=== PATIENT | female | born 1950 | race Caucasian/White ===

== ENCOUNTER 2016-11-05 10:02 | Outpatient (CLI) | payer MEDICARE ==
--- NOTE | 2016-11-06 15:43 | Mammography Report ---
DIGITAL SCREENING MAMMOGRAM: 11/05/2016 CLINICAL INDICATION: A 66-year-old with family history of breast cancer, history of implants, for scr eening. TECHNIQUE: Routine CC and MLO projections were obtained of the breasts. Implant-displaced views. FINDINGS: The breasts demonstrate scattered fibroglandular densities bilaterally. Coarse and punctat e, typically benign calcifications are present. No suspicious masses, clustered microcalcifications, or regions of architectural distortion are identified. Bilateral subglandular silicone implants are n oted. IMPRESSION: BENIGN FINDINGS. RECOMMENDATION: ROUTINE ANNUAL SCREENING UNLESS OTHERWISE CLINICALLY INDICATED. BIRADS CATEGORY 2-BENIGN FINDINGS. STANDARD QUALIFYING STATEMENTS 1. This examination was reviewed with the aid of Computer-Aided Detection (CAD). 2. A negative or benign imaging report should not delay biopsy if clinically suspicious findings are present. Consider surgical consultation if warranted. More than 5% of cancers are not identified by i maging. 3. Dense breasts may obscure an underlying neoplasm. JOB #: [id number] EXT JOB #:[id number]
== END 2016-11-05 10:03 | disposition home or self-care (01) ==
LOC: DI 10:02
PROVIDERS: ATTEND Family Medicine
DX: Z12.31 Encounter for screening mammogram for malignant neoplasm of breast (principal); Z80.3 Family history of malignant neoplasm of breast; Z98.82 Breast implant status
CPT/HCPCS: 77067

== ENCOUNTER 2016-12-14 06:46 | Outpatient (CLI) | payer MEDICARE ==
--- NOTE | 2016-12-14 07:26 | XRAY Report ---
EXAM: RIGHT SHOULDER RADIOGRAPHY EXAM DATE: 12/14/2016 06:59 AM. CLINICAL HISTORY: RIGHT SHOULDER PAIN. COMPARISON: None. TECHNIQUE: 3 views. FINDINGS: Bones: No fracture. 5 mm ovoid sclerotic lesion with narrow zone of transition in the posterior right second rib is of uncertain clinical significance. No other focal osseous lesions are demonstrated. T here is irregular tapering of the distal clavicle and the acromioclavicular articulation is widened t o approximately 2.6 cm. Joints: No dislocation. There is superior subluxation of the humeral head relative to the acromion. Soft tissues: The visualized hemithorax is clear. Aortic atherosclerosis. IMPRESSION: 1. Findings suggestive of distal clavicle osteolysis versus postsurgical change. 2. Probable chronic rotator cuff tear. No acute fracture or dislocation. [facility] Referring Provider Line: [phone] SITE ID: [id number]
== END 2016-12-14 06:47 | disposition home or self-care (01) ==
LOC: DI 06:46
PROVIDERS: ATTEND Family Medicine
DX: M25.511 Pain in right shoulder (principal); G89.29 Other chronic pain

== ENCOUNTER 2016-12-19 08:33 | Outpatient (CLI) | payer MEDICARE ==
[2016-12-19 08:54] LABS: CREATININE 0.8 mg/dL (0.4-1.0)
[2016-12-19] MEDS ORDERED: IOPAMIDOL-300 100 ML VIAL IVP ONE (10:07)
--- NOTE | 2016-12-21 09:23 | CT Report ---
EXAM: CT THORACIC SPINE WITH CONTRAST EXAM DATE: 12/19/2016 10:13 a.m. CLINICAL HISTORY: Sclerotic lesion in the right second rib. Right shoulder pain. COMPARISONS: Right shoulder radiographs 12/14/2016. TECHNIQUE: Thin-section axial images were acquired of the thoracic spine from C7 to L1 after administ ration of intravenous contrast. IV contrast: 100 mL Isovue-300. Post-processing: Coronal and sagittal reformats. Other: None. In accordance with CT protocol optimization, one or more of the following dose reduction techniques w ere utilized for this exam: automated exposure control, adjustment of mA and/or KV based on patient s ize, or use of iterative reconstructive technique. FINDINGS: Alignment: Normal alignment. No spondylolisthesis. Bones: 6 mm well-defined sclerotic lesion in the posterior right second rib corresponding to the lesi on seen on radiograph. No additional discrete bone lesions are identified within the [id number]. N o fractures. No destructive bone lesions. T8 vertebral body hemangioma is noted. Disk Levels/Facets: Some prominent degenerative disk changes in the lower cervical spine with disk he ight loss, osteophytes and endplate sclerosis most pronounced at C5-C6. C7-T1: Moderate bilateral degenerative facet arthropathy. Uncinate hypertrophy. Mild left greater lindsay n right foraminal stenosis. T1-T2: Moderate right and mild left facet arthropathy. T2-T3: Minimal grade 1 spondylolisthesis. Moderate facet arthropathy. T3-T4: Mild facet arthropathy. T4-T5: Mild facet arthropathy. T5-T6: Unremarkable. T6-T7: Unremarkable. T7-T8: Unremarkable. T8-T9: Unremarkable. T9-T10: Unremarkable. T10-T11: Unremarkable. T11-T12: Some disk height loss, osteophyte formation and endplate sclerosis anteriorly. T12-L1: Small right paracentral protrusion with some peripheral calcification. Spinal Canal: No abnormally enhancing areas by CT. Musculature: Normal. No fatty atrophy. Other: The visualized portions of the lungs appear well-aerated. Some small areas of pleural thickeni ng at the lower posterior right hemithorax. No pleural effusion. Visualized portions of the mediastin um and upper retroperitoneum are unremarkable. IMPRESSION: 1. Single 6 mm well-defined sclerotic lesion in the right second rib. No additional lesions within th e [id number]. Bone island may be most likely given the lack of additional lesions. Correlate with any history of primary neoplasm. 2. Mild thoracic degenerative disk and facet arthropathy. [facility] Referring Provider Line: [phone] SITE ID: [id number]
== END 2016-12-19 08:34 | disposition home or self-care (01) ==
LOC: LAB 08:33
PROVIDERS: ATTEND Family Medicine
DX: R93.7 Abnormal findings on diagnostic imaging of other parts of musculoskeletal system (principal)
CPT/HCPCS: 36415; 72129; 82565; Q9967

== ENCOUNTER 2018-03-07 10:02 | Emergency (ER) | payer MEDICARE ==
[2018-03-07 10:30] VITALS: BP 118/53
[2018-03-07 10:48] LABS: BILIRUBIN,URINE NEGATIVE (NEGATIVE); GLUCOSE, URINE (UA) NEGATIVE (NEGATIVE); KETONES,URINE (UA) NEGATIVE (NEGATIVE); LEUKOCYTE ESTERASE, URINE NEGATIVE (NEGATIVE); NITRITE,URINE NEGATIVE (NEGATIVE); OCCULT BLOOD,URINE NEGATIVE (NEGATIVE); PROTEIN,URINE NEGATIVE (NEGATIVE); UROBILINOGEN,URINE 0.2 (NORMAL) E.U./dL (NORMAL)
[2018-03-07 10:50] LABS: CLARITY,URINE CLEAR (CLEAR)
[2018-03-07] MEDS ORDERED: LIDOCAINE PATCH 5% TOP STA (12:03)
[2018-03-07] MEDS ORDERED: DEXAMETHASONE 10 MG/ML VIAL PO STA (12:03)
[2018-03-07] MEDS ORDERED: CYCLOBENZAPRINE 10 MG TABLET PO STA (12:04)
--- NOTE | 2018-03-07 12:11 | ED Physician Documentation ---
History of Present Illness - Stated complaint Stated Complaint: BACK PX - Chief complaint Chief Complaint: Back Pain - Additonal information Additional information: hx from pt 67 female prior laminectomy in [place] somewhat insidious onset low back pain radiating to lateral thighs but not past the knees no fever no abd pain no saddle anesthesia no urinary incont no numbness or weakness her PMD not available she spoke to her insurance company thinks may need MRI Review of Systems Constitutional: denies: Fever Cardiac: denies: Chest pain / pressure Respiratory: denies: Dyspnea GI: denies: Abdominal Pain : denies: Incontinent Musculoskeletal: reports: Back pain Neurologic: denies: Focal weakness, Numbness Endocrine: denies: Easy bruising / bleeding Immunocompromised: denies: Immunocompromised PD PAST MEDICAL HISTORY - Present Medications Home Medications: Ambulatory Orders Medication Instructions Recorded Confirmed Cyclobenzaprine [Flexeril] 10 mg PO TID PRN #20 tablet 03/07/18 Lidocaine Patch 5% [Lidoderm Patch] 1 patch TOP DAILY PRN #10 patch 03/07/18 predniSONE [Deltasone] 40 mg PO DAILY #5 tablet 03/07/18 - Allergies Allergies/Adverse Reactions: Allergies Allergy/AdvReac Type Severity Reaction Status Date / Time acetaminophen [From Vicodin] Allergy Emesis Verified 03/07/18 10:30 hydrocodone [From Vicodin] Allergy Emesis Verified 03/07/18 10:30 oxycodone Allergy Emesis Verified 03/07/18 10:30 tetanus toxoid, adsorbed Allergy Unknown Verified 03/07/18 10:30 PD ED PE NORMAL - Vitals Vital signs reviewed: Yes - Neck Neck: Supple, no meningeal sign - Cardiac Cardiac: RRR - Respiratory Respiratory: No respiratory distress, Clear bilaterally - Abdomen Abdomen: Soft, Non tender, Other (no pulsatile mass) - Back Back: No spinal TTP, Other (diffuse soft tissue low back TTP s redness swellign warmth, very limited 2/2 pain) - Derm Derm: Normal color - Neuro Neuro: Other (denies saddle anesthesia, neg SLR nl sensation, hip flexion knee ext slightly limited by pain but symm and intact, foot dorsi plant and great toe ext intact, no clonus, inc pain with SLR) Results - Vitals Vitals: Vital Signs - 24 hr 03/07/18 10:23 Temperature 36.3 C L Heart Rate 100 Respiratory 18 Rate Blood Pressure 118/53 L O2 Saturation 100 Oxygen O2 Source Room air - Labs Labs: Laboratory Tests 03/07/18 10:27 Urine Color YELLOW Urine Clarity CLEAR Urine pH 6.0 Ur Specific [place] 1.010 Urine Protein NEGATIVE Urine Glucose (UA) NEGATIVE Urine Ketones NEGATIVE Urine Occult Blood NEGATIVE Urine Nitrite NEGATIVE Urine Bilirubin NEGATIVE Urine Urobilinogen 0.2 (NORMAL) Ur Leukocyte Esterase NEGATIVE Ur Microscopic Review NOT INDICATED Urine Culture Comments NOT INDICATED PD MEDICAL DECISION MAKING - ED course ED course: d/w pt this could be a new HNP and she may need a MRI but not needing emergent MRI from the ER at this time advised will manage her pain and sx with lidocaine mm relaxant steroids for radicular pain and needs to fup PMD and if sx persist despite conservative tx then would proceed to MRI she seems frustrated with this plan but understands my explanation Departure - Departure Disposition: 01 Home, Self Care Clinical Impression: Back pain Qualifiers: Back pain location: low back pain Chronicity: acute Back pain laterality: bilateral Sciatica presence: with sciatica Sciatica laterality: bilateral sciatica Qualified Code(s): M54.42 - Lumbago with sciatica, left side; M54.41 - Lumbago with sciatica, right side Sciatica Qualifiers: Laterality: bilateral Qualified Code(s): M54.31 - Sciatica, right side; M54.32 - Sciatica, left side Instructions: ED Sciatica, ED Neck Back Pain General Follow-Up: Yunier Anaya MD [Primary Care Provider] - Prescriptions: Cyclobenzaprine [Flexeril] 10 mg PO TID PRN #20 tablet PRN Reason: Spasms Lidocaine Patch 5% [Lidoderm Patch] 1 patch TOP DAILY PRN #10 patch PRN Reason: pain predniSONE [Deltasone] 40 mg PO DAILY #5 tablet Comments: Your history and exam do suggest you may have another herniated disk. But do not suggest a need for emergent surgery Therefore you do not need an emergent MRI for the ER today This does not mean nothing is wrong or that you won't need a MRI if your symptoms persist But for now I think it is safe for you to go home to follow up with your PMD as scheduled and to discuss getting an elective MRI as an outpatient of the symptoms persist I have prescribed medications to help ease your symptoms. Return if worse (fever, numbness in the groin area, leaking urine, worsening weakness)
== END 2018-03-07 12:52 | disposition home or self-care (01) ==
LOC: ED 10:02
DX: M54.42 Lumbago with sciatica, left side (principal); M54.41 Lumbago with sciatica, right side
CPT/HCPCS: 81003; 99283; A9270; 81001; 87086

== ENCOUNTER 2018-03-12 13:43 | Outpatient (CLI) | payer MEDICARE ==
--- NOTE | 2018-03-14 13:18 | Ultrasound Report ---
Reason: LOCALIZED SWELLING,MASS AND LUMP Procedure Date: 03/12/2018 Accession Number: [id number] / [id number] Procedure: US - Head or Neck Soft Tissue CPT Code: FULL RESULT: EXAM: NECK ULTRASOUND EXAM DATE: 03/12/2018 01:51 PM. CLINICAL HISTORY: LOCALIZED SWELLING,MASS AND LUMP BEHIND THE LEFT EAR. COMPARISON: None. TECHNIQUE: Real-time sonographic imaging was performed by the route supervisor utilizing color-flow. Multiple insurance representative static images were saved for review. FINDINGS: The soft tissue area behind the left ear corresponding to the physical exam finding of concern was interrogated with grayscale and limited color Doppler ultrasound. A hypoechoic wider than tall ovoid structure with heterogeneous echotexture and no increased vascularity by color Doppler measuring 1 cm x 1.1 cm 0.4 cm is identified. As no fatty hilum/hilar vasculature is seen this is not definitely characterize the lymph nodes of the overall appearance and location is compatible. IMPRESSION: Ovoid mass, possible a lymph node as described. Definite architectural features of a lymph node are not demonstrated. [facility]
== END 2018-03-12 13:44 | disposition home or self-care (01) ==
LOC: DI 13:43
PROVIDERS: ATTEND Nurse Practitioner Family
DX: R22.1 Localized swelling, mass and lump, neck (principal)
CPT/HCPCS: 76536

== ENCOUNTER 2018-03-26 08:42 | Outpatient (CLI) | payer MEDICARE ==
[2018-03-26] MEDS ORDERED: IOVERSOL 320 100 ML VIAL IVP ONE ×3 (09:06→09:57)
[2018-03-26 09:14] LABS: CALCIUM 9.1 mg/dL (8.5-10.3); CREATININE 0.8 mg/dL (0.4-1.0)
--- NOTE | 2018-03-27 14:14 | CT Report ---
Reason: LOCALIZED SWELLING,MASS AND LUMP,HEAD Procedure Date: 03/26/2018 Accession Number: [id number] / [id number] Procedure: CT - Neck Soft Tissue W/ CPT Code: FULL RESULT: EXAM: CT SOFT TISSUE NECK WITH CONTRAST. EXAM DATE: 03/26/2018 09:53 AM. HISTORY: 67-year-old presenting with a mass behind the left ear. Evaluate for neck pathology. COMPARISONS: None. TECHNIQUE: Routine soft tissue neck CT protocol. Reconstructions: Coronal and sagittal. IV contrast: OPTIRAY 320 8 mL. In accordance with CT protocol optimization, one or more of the following dose reduction techniques were utilized for this exam: automated exposure control, adjustment of mA and/or KV based on patient size, or use of iterative reconstructive technique. FINDINGS: Dental amalgam streak artifact technically limits evaluation of the oral cavity, oropharynx, and surrounding soft tissues. Visualized Intracranial Contents: Unremarkable. Orbits: Symmetric and unremarkable. Sinuses: Visualized paranasal sinuses and mastoid air cells are clear. Oral cavity: The visualized oral cavity is unremarkable. The floor of the mouth is symmetric. Pharynx : Pharyngeal mucosa is unremarkable. The infratemporal fossa, parapharyngeal spaces, and retropharyngeal space are unremarkable. The base of the tongue is symmetric and unremarkable. The airway is patent. Larynx: Larynx and supraglottic airway are patent without mass lesion. Vocal cords are symmetric. The visualized trachea is unremarkable. Parotid and Submandibular Glands: Symmetric and unremarkable. Lymph Nodes: No enlarged lymph nodes are identified in the cervical, supraclavicular, and visualized superior mediastinal regions. Soft tissues: There are small subcentimeter cervical lymph nodes seen in the left periauricular region measuring up to 4 mm in short axis dimension (series 3, image 45). No other definite mass, inflammatory process, fluid collection, or abnormal postcontrast enhancement seen within the left auricular or periauricular region. Soft tissues are unremarkable. No mass lesion or abnormal enhancement. Vascular Structures: Unremarkable. Thyroid Gland: Normal. Lung: The visualized lung apices are clear. Bones: No evidence of acute fracture or malalignment. There are mild degenerative changes. Other: None. IMPRESSION: 1. Dental amalgam streak artifact technically limited evaluation of the oral cavity, oropharynx, and surrounding soft tissues. 2. There are small subcentimeter cervical lymph nodes seen in the left periauricular region measuring up to 4 mm in short axis dimension (series 3, image 45). These do not meet CT size criteria for pathology. These may represent reactive lymph nodes. 3. No other definite mass, inflammatory process, fluid collection, or abnormal postcontrast enhancement seen within the left auricular or periauricular region. 4. No mass, inflammatory process, fluid collection, or abnormal postcontrast enhancement seen within the neck. 5. No cervical lymphadenopathy. [facility]
== END 2018-03-26 08:43 | disposition home or self-care (01) ==
LOC: LAB 08:42
PROVIDERS: ATTEND Nurse Practitioner Family
DX: R22.0 Localized swelling, mass and lump, head (principal)
CPT/HCPCS: 36415; 70491; 80048; Q9967

== ENCOUNTER 2019-01-10 08:24 | Outpatient (CLI) | payer MEDICARE | END 2019-01-10 08:25 | disposition home or self-care (01) | LOC: RT 08:24 | PROVIDERS: ATTEND Nurse Practitioner Family | DX: Z01.810 Encounter for preprocedural cardiovascular examination (principal) | CPT/HCPCS: 93005 ==

== ENCOUNTER 2019-03-18 08:30 | Outpatient (CLI) | payer MEDICARE ==
[2019-03-18] MEDS ORDERED: IOVERSOL 320 100 ML VIAL IVP ONE ×2 (08:35→09:03)
--- NOTE | 2019-03-19 09:26 | CT Report ---
Reason: LOCALIZED ENGLOARGED LYMPHNODES Procedure Date: 03/18/2019 Accession Number: [id number] / [id number] Procedure: CT - SOFT TISSUE NECK W CPT Code: Final Report FULL RESULT: EXAM: CT SOFT TISSUE NECK WITH CONTRAST. EXAM DATE: 03/18/2019 09:02 AM. HISTORY: Localized enlarged lymph nodes. Lump behind left ear. COMPARISONS: NECK SOFT TISSUE W/ 03/26/2018 9:44 AM HEAD OR NECK SOFT TISSUE 03/12/2018 1:51 PM. TECHNIQUE: Routine soft tissue neck CT protocol with contrast. Reconstructions: Coronal and sagittal. IV contrast: OPTI 320 80ML. In accordance with CT protocol optimization, one or more of the following dose reduction techniques were utilized for this exam: automated exposure control, adjustment of mA and/or KV based on patient size, or use of iterative reconstructive technique. FINDINGS: Visualized Intracranial Contents: Unremarkable. Orbits: Symmetric and unremarkable. Sinuses: Visualized paranasal sinuses and mastoid air cells are clear. Oral cavity: The visualized oral cavity is unremarkable. The floor of the mouth is symmetric. Pharynx: Pharyngeal mucosa is unremarkable. The export manager spaces and pterygopalatine fossa are unremarkable. The infratemporal fossa, parapharyngeal spaces, and retropharyngeal space are unremarkable. The base of the tongue is symmetric and unremarkable. The airway is patent. Larynx: Larynx and supraglottic airway are patent without mass lesion. Vocal cords are symmetric. The visualized trachea is unremarkable. Parotid and Submandibular Glands: Symmetric and unremarkable. Lymph Nodes: No enlarged lymph nodes are identified in the cervical, supraclavicular, and visualized superior mediastinal regions. Soft tissues: Soft tissues are unremarkable. No mass lesion or abnormal enhancement. A metallic BB is placed on the skin posterior to the left ear, at the site of symptoms. Deep to this, no fascial plane abnormality is seen. No solid or cystic mass is appreciated. No abnormal inflammation. Vascular Structures: Patent and unremarkable. The right internal jugular vein is dominant. Thyroid Gland: Normal. Lung: The visualized lung apices are clear. Bones: No lytic or blastic bony lesions. No acute fracture. Mild cervical spondylosis is seen. C3-C4: Left-sided degenerative facet change. Mild degenerative disk change. Minimal spondylolisthesis. C4-C5, C5-C6, C6-C7: Degenerative disk and uncovertebral change. Scattered foraminal stenosis. C7-T1: Mild degenerative facet change greater on the left. Minimal spondylolisthesis. Other: None. IMPRESSION: 1. Negative CT scan of the neck. No mass or adenopathy. 2. No abnormality is seen deep to the skin marker placed posterior to the left ear. 3. Mild spondylosis throughout the mid and lower cervical spine. [facility]
== END 2019-03-18 08:31 | disposition home or self-care (01) ==
LOC: DI 08:30
PROVIDERS: ATTEND Nurse Practitioner Family
DX: R59.0 Localized enlarged lymph nodes (principal); M47.812 Spondylosis without myelopathy or radiculopathy, cervical region
CPT/HCPCS: 70491; Q9967

== ENCOUNTER 2019-04-17 07:56 | Day surgery (SDC) | payer MEDICARE ==
[~2019-04-17 07:56] MED LIST: CEFAZOLIN SODIUM IN 0.9 % NACL 2 GM/100 ML BAG IV ONE
[2019-04-17] MEDS ORDERED: LACTATED RINGERS 1,000 ML IV ONE (08:07)
--- NOTE | 2019-04-17 08:41 | ANESTHESIA ---
Pre-Anesthesia VS, & Labs - Diagnosis right flank mass, left post auricular mass - Procedure Excision of right flank mass and left post auricular mass Vital Signs: Temp Pulse Resp BP Pulse Ox 36.1 C L 74 16 173/85 H 98 04/17/19 08:07 04/17/19 08:07 04/17/19 08:07 04/17/19 08:07 04/17/19 08:07 Height 4 ft 11 in Weight (kg) 80.3 kg Body Mass Index 33.2 - NPO >8 hours - Is Patient ?: No Home Medications and Allergies Home Medications: Ambulatory Orders Atorvastatin Calcium 20 mg PO QPM 03/30/19 Gabapentin 300 mg PO BID 03/30/19 Levothyroxine Sodium 50 mcg PO DAILY 03/30/19 Liothyronine [Cytomel] 5 mcg PO QDAC 03/30/19 Atorvastatin Calcium 20 mg PO QPM 03/30/19 Gabapentin 300 mg PO BID 03/30/19 Levothyroxine Sodium 50 mcg PO DAILY 03/30/19 Liothyronine [Cytomel] 5 mcg PO QDAC 03/30/19 Allergies/Adverse Reactions: Allergies Allergy/AdvReac Type Severity Reaction Status Date / Time hydrocodone [From Vicodin] Allergy Emesis Verified 03/07/18 10:30 oxycodone Allergy Emesis Verified 03/07/18 10:30 tetanus toxoid, adsorbed Allergy Dizziness Verified 03/30/19 15:03 Anes History & Medical History - Anesthetic History Anesthesia Complications: reports: No previous complications - Medical History Cardiovascular: reports: High cholesterol Pulmonary: reports: None Gastrointestinal: reports: None Urinary: reports: None Neuro: reports: Peripheral neuropathy (right foot) Musculoskeletal: reports: Chronic back pain Endocrine/Autoimmune: reports: HyPOthyroidism Blood Disorders: reports: None Skin: reports: None Smoking Status: Never smoker Psychosocial: reports: Alcohol (Glass of wine 3-4 times per week) - Surgical History Orthopedic: Rotator cuff repair, Arthroscopic surgery, Spine surgery, Other Results - EKG Results EKG Comparison: Reviewed EKG, Normal EKG Exam General: Alert, Oriented x3, Cooperative, No acute distress Dental: WNL Mouth Openin Fingerbreadth Neck Mobility: Normal Mallampati classification: II Thyromental Distance: greater than 6 cm Respiratory: Lungs clear, Normal breath sounds, No respiratory distress, No accessory muscle use Cardiovascular: Regular rate, Normal S1, Normal S2, No murmurs Mental/Cognitive Status: Alert/Oriented X3, Normal for patient Plan Anesthesia Type: MAC Consent for Procedure(s) Verified and Reviewed: Yes Code Status: Attempt Resuscitation ASA classification: 2-Mild systemic disease Is this case an emergency?: No
[2019-04-17] MEDS ORDERED: BUPIVACAINE 0.5% PF 30 ML VIAL ONE (09:13)
[2019-04-17] MEDS ORDERED: LIDOCAINE 1%-EPI 1:100000 20 ML MDV ONE (09:14)
[2019-04-17] MEDS ORDERED: fentaNYL 100 MCG/2 ML VIAL IVP ONE (09:30)
[2019-04-17] MEDS ORDERED: LIDOCAINE-MPF 2% 5 ML VIAL IM ONE (09:30)
[2019-04-17] MEDS ORDERED: MIDAZOLAM 2 MG/2 ML VIAL IVP ONE (09:30)
[2019-04-17] MEDS ORDERED: PROPOFOL 200 MG/20 ML VIAL IVP ONE (09:30)
[2019-04-17] MEDS ORDERED: LIDOCAINE 1%-EPI 1:100000 20 ML MDV SUBQ ONE ×2 (10:10)
[2019-04-17] MEDS ORDERED: BUPIVACAINE 0.5% PF 30 ML VIAL INFIL ONE ×2 (10:11)
--- NOTE | 2019-04-17 10:28 | OPERATIVE REPORT ---
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 Procedure Performed: Excision of right flank lipoma and posterior auricular lipomatous mass Post Op Diagnosis: Right flank lipoma and posterior auricular lipomatous mass - Procedure Note Primary Surgeon: Mike Anesthesia Provider: FERMIN Norwood Anesthesia Technique: Local, MAC Pathology: 8 cm flank mass to pathology in formalin 2 cm posterior auricular mass to pathology in formalin Estimated Blood Loss (mL): 5 Findings: Well circumscribed right flank mass Partially well circumscribed left posterior auricular mass Complications: None apparent - Other Other Information/Narrative: After obtaining informed consent, the patient is brought to the operating room and placed in the supine position on the operating table. Following successful induction of sedation with monitored anesthesia care, the patient is rolled to the left lateral decubitus position and the right flank prepped and draped in the standard surgical fashion. A timeout was held per scope protocol. All elements of surgical safety checklist were followed before, during, and after the procedure. We began the procedure by infiltrating mixture of local anesthetics over the palpable mass in the right flank. An incision was created here and carried through the skin and subcutaneous tissue to reveal the fatty mass below. The mass was carefully dissected free from surrounding structures. It was found to have a single neurovascular pedicle at the right lateral aspect of the mass. This was divided gently with cautery. The wound was then checked for hemostasis and closed in 2 layers with Vicryl Monocryl suture. Dermabond was applied to the skin. The patient was then rolled, with her assistance, to her right side and her head turned to the right revealing the left posterior auricular region. This area was now prepped and draped in the standard surgical fashion. Additional local anesthetic was applied to the palpable mass posterior to the left ear. An incision was created at the anterior extent of the mass and the fatty substance was revealed. This was carefully dissected free from other structures and delivered into the field. Total size of this mass was approximately 2 cm. The wound was then checked for hemostasis and closed in 2 layers with Vicryl and Monocryl suture. All sponge, needle, and instrument counts were correct at the conclusion of the case. The patient was allowed to wake from anesthesia without difficulty and taken to the postanesthesia care unit in good condition.
[2019-04-17] MEDS ORDERED: oxyCODONE 5 MG TABLET PO PRN (10:31)
[2019-04-17 10:50] VITALS: BP 138/69
== END 2019-04-17 07:57 | disposition home or self-care (01) ==
LOC: SDS 07:56
PROVIDERS: ATTEND Surgery
PROC: 0JB70ZZ Excision of Back Subcutaneous Tissue and Fascia, Open Approach (ICD-10-PCS; 2019-04-17)
PROC: 0JB00ZZ Excision of Scalp Subcutaneous Tissue and Fascia, Open Approach (ICD-10-PCS; principal; 2019-04-17 09:00)
DX: D17.0 Benign lipomatous neoplasm of skin and subcutaneous tissue of head, face and neck (principal); D17.1 Benign lipomatous neoplasm of skin and subcutaneous tissue of trunk; E66.9 Obesity, unspecified; Z68.33 Body mass index [BMI] 33.0-33.9, adult

== ENCOUNTER 2020-06-25 07:46 | Outpatient (CLI) | payer MEDICARE ==
--- NOTE | 2020-06-26 15:07 | Mammography Report ---
BILATERAL DIGITAL SCREENING MAMMOGRAM 3D/2D WITH AUGMENTATION: 06/25/2020 CLINICAL: Routine screening. Comparison is made to exam dated: 11/05/2016 mammogram - [facility]. There are sca ttered fibroglandular elements in both breasts. Bilateral breast implants are stable. No significant masses, calcifications, or other findings are seen in either breast. There has been no significant interval change. IMPRESSION: NEGATIVE There is no mammographic evidence of malignancy. A 1 year screening mammogram is recommended. This exam was interpreted at Station ID: [id number]. NOTE: For mammograms, a report in lay terms will be sent to the patient. Approximately 15% of breast malignancies will not be visualized mammographically. In the management of a palpable breast mass, a negative mammogram must not discourage biopsy of a clinically suspicious lesion. Electronically Signed By: Eugene Carter M.D. ar/penrad:06/25/2020 09:02:42 ACR BI-RADS Category 1: Negative 3341F PARENCHYMAL PATTERN: (A) - The breast(s) demonstrate(s) scattered fibroglandular densities. BI-RADS CATEGORY: (1) - 1 RECOMMENDATION: (ANNUAL) - Recommend routine annual screening mammography. [id number] 1 year screening LATERALITY: (B)
== END 2020-06-25 07:47 | disposition home or self-care (01) ==
LOC: DI.S 07:46
PROVIDERS: ATTEND Nurse Practitioner Family
DX: Z12.31 Encounter for screening mammogram for malignant neoplasm of breast (principal); Z98.82 Breast implant status

== ENCOUNTER 2021-12-11 08:09 | Outpatient (CLI) | payer MEDICARE ==
--- NOTE | 2021-12-11 11:28 | DEXA Report ---
PROCEDURE: Dexa Spine and/or Hip INDICATIONS: POSTMENOPAUSAL TECHNIQUE: Dual energy x-ray absorptiometry (DXA) was performed on a [employer]ince[employer] System. Regions measur ed are the AP Spine, femoral neck, and if needed forearm. COMPARISON: None. FINDINGS: Lumbar Spine: Bone Mineral Density 1.1 g/cm/cm,T score -0.7, normal bone density Left Hip: Bone Mineral Density 0.797 g/cm/cm,T score -1.7, osteopenia Left Femoral Neck: Bone Mineral Density 0.616 g/cm/cm, T score -3.0, osteoporosis (T score greater or equal to -1.0: NORMAL) (T score from -1.1 to -2.4: OSTEOPENIA) (T score less than or equal to -2.5 to: OSTEOPOROSIS) Impression: Osteoporosis. Patient is at high risk for fracture. Patients with diagnosis of osteoporosis or osteopenia should have regular bone mineral density assess ment. For those eligible for Medicare, routine testing is allowed once every 2 years. Testing frequ ency can be increased for patients who have rapidly progressing disease or for those who are receivin g medical therapy to restore bone mass. Reviewed by: Reagan Dalal MD on 12/11/2021 11:27 AM PDT Approved by: Reagan Dalal MD on 12/11/2021 11:27 AM PDT Station ID: [id number]
== END 2021-12-11 08:10 | disposition home or self-care (01) ==
LOC: DI 08:09
PROVIDERS: ATTEND Nurse Practitioner Family
DX: M81.0 Age-related osteoporosis without current pathological fracture (principal); Z78.0 Asymptomatic menopausal state

== ENCOUNTER 2023-04-16 00:07 | Outpatient (CLI) | payer OTHER | END 2023-04-16 23:59 | disposition critical access hospital (66) | LOC: EMS 00:07 | DX: S90.02XA Contusion of left ankle, initial encounter (principal); W07.XXXA Fall from chair, initial encounter; Y92.009 Unspecified place in unspecified non-institutional (private) residence as the place of occurrence of the external cause | CPT/HCPCS: A0425; A0427 ==

== ENCOUNTER 2023-04-16 00:29 | Emergency (ER) | payer MEDICARE, OTHER ==
[2023-04-16 00:53] VITALS: O2SAT 100
--- NOTE | 2023-04-16 01:18 | XRAY Report ---
PROCEDURE: Ankle 3+V LT INDICATIONS: L ankle pain s/p fall TECHNIQUE: 3 views of the ankle were acquired. COMPARISON: None. FINDINGS: Bones: Overlying material limits fine bony detail. Comminuted and mildly displaced fracture of the di stal fibula. There appears to be a mildly displaced fracture of the medial malleolus.. Ankle mortise is normally aligned. No suspicious bony lesions. Soft tissues: No tibiotalar joint effusion. Achilles tendon appears normal. IMPRESSION: Bimalleolar fractures as above. Reviewed by: Matt Roach MD on 04/16/2023 1:16 AM PST Approved by: Matt Roach MD on 04/16/2023 1:16 AM [facility] Station ID: [id number]
[2023-04-16] MEDS ORDERED: oxyCODONE/ACET 5/325 Prepack 4 PO STA ×2 (02:37→03:25)
--- NOTE | 2023-04-16 02:44 | ED Physician Documentation ---
PD HPI LOWER EXT INJURY - Stated complaint Stated Complaint: L ANKLE PX - Chief complaint Chief Complaint: Trauma Ext - History obtained from History obtained from: Patient - Additional information Additional information: 72yF presents to the ED s/p fall from chair, hurting L ankle. also with pain to L proximal leg. denies other injury PD PAST MEDICAL HISTORY - Past Medical History Cardiovascular: High cholesterol Respiratory: None Neuro: Peripheral neuropathy Endocrine/Autoimmune: HyPOthyroidism GI: None : None HEENT: Chronic vision loss Psych: None Musculoskeletal: Chronic back pain Derm: None - Past Surgical History Past Surgical History: No Ortho: Rotator cuff repair, Arthroscopic surgery, Spine surgery, Other - Present Medications Home Medications: Ambulatory Orders Medication Instructions Recorded Confirmed Gabapentin 900 mg PO BID 03/30/19 04/16/23 Acetaminophen [Tylenol] 2 tab PO DAILY 04/16/23 04/16/23 Calcium Carbonate [Calcium] 2 tab PO DAILY 04/16/23 04/16/23 Cholecalciferol [Vitamin D3] 1 cap PO DAILY 04/16/23 04/16/23 Levothyroxine [Synthroid] 1 tab PO DAILY 04/16/23 04/16/23 Morphine Ir [Ms Ir] 15 mg PO Q6H PRN #8 tablet 04/16/23 Rosuvastatin Calcium 1 tab PO DAILY 04/16/23 04/16/23 - Allergies Allergies/Adverse Reactions: Allergies Allergy/AdvReac Type Severity Reaction Status Date / Time hydrocodone [From Vicodin] Allergy Emesis Verified 04/16/23 00:46 oxycodone Allergy Emesis Verified 04/16/23 00:46 tetanus toxoid, adsorbed Allergy Dizziness Verified 04/16/23 00:46 - Social History Does the pt smoke?: Yes Smoking Status: Current every day smoker Does the pt drink ETOH?: Yes Does the pt have substance abuse?: No - POLST Patient has POLST: No PD ED PE NORMAL - Vitals Vital signs reviewed: Yes - General General: Alert and oriented X 3, No acute distress, Well developed/nourished - HEENT HEENT: Atraumatic - Extremities Extremities: No tenderness to palpate, Other (L ankle swelling and pain with palpation. unable to range 2/2 pain . 2+ DP pulse. normal sensation and cap refill) - Neuro Neuro: Alert and oriented X 3, No motor deficit, No sensory deficit Results - Vitals Vitals: Vital Signs - 24 hr 04/16/23 04/16/23 00:42 00:54 Temperature 36.8 C 36.5 C Heart Rate 80 83 Respiratory 22 Rate Blood Pressure 103/91 H 103/91 H O2 Saturation 100 100 Oxygen O2 Source Room air PD Medical Decision Making - ED course ED course: 72yF presents to ED with bimall fracture on xray. ruled out maisonneuve fracture with leg xrays. splint placed and crutches provided. advised no weight bearing. plan to f/u ortho, likely need surgery. return precautions given. pain controlled with po percoset. Departure - Departure Forms: PCP List
[2023-04-16 04:58] VITALS: BP 99/57
--- NOTE | 2023-04-16 08:32 | XRAY Report ---
PROCEDURE: Tib/Fib LT INDICATIONS: L proximal fibula pain s/p fall with bimall fx TECHNIQUE: 2 views of the tibia and fibula were acquired. COMPARISON: Ankle radiographs 04/16/2023. FINDINGS: Bones: No fractures or dislocations. No suspicious bony lesions. Soft tissues: No suspicious soft tissue calcifications or masses. IMPRESSION: No acute bony abnormality. Please see separately dictated ankle radiographs for description of bimall eolar fractures. Reviewed by: Iesha Chandler MD on 04/16/2023 8:30 AM PST Approved by: Iesha Chandler MD on 04/16/2023 8:30 AM PST Station ID: [id number]
== END 2023-04-16 04:52 | disposition home or self-care (01) ==
LOC: EDUNIT# → ED 00:29
DX: S82.842A Displaced bimalleolar fracture of left lower leg, initial encounter for closed fracture (principal); W07.XXXA Fall from chair, initial encounter; F17.200 Nicotine dependence, unspecified, uncomplicated
CPT/HCPCS: 99283

== ENCOUNTER 2023-04-19 10:32 | Outpatient (CLI) | payer MEDICARE, OTHER ==
--- NOTE | 2023-04-19 16:31 | XRAY Report ---
PROCEDURE: Ankle 3 View LT INDICATIONS: LEFT ANKLE FRACTURE TECHNIQUE: 3 views of the ankle were acquired. COMPARISON: 04/16/2023. FINDINGS: Bones: Again noted is a displaced oblique fractures through medial and lateral malleoli with disrupt ion of ankle mortise and slight medial tilting of the talus in relation to distal tibia. No new fract ure or dislocation. No suspicious bony lesions. Soft tissues: There is soft tissue swelling around ankle joint. Moderate tibiotalar joint effusion. Achilles tendon appears normal. IMPRESSION: Acute bimalleolar fracture not significantly changed from previous study. Reviewed by: Chalo Nolen MD on 04/19/2023 4:30 PM PST Approved by: Chalo Nolen MD on 04/19/2023 4:30 PM PST Station ID: [id number]
== END 2023-04-19 23:59 | disposition home or self-care (01) ==
LOC: DI.WOS 10:32
PROVIDERS: ATTEND Orthopaedic Surgery
DX: S82.842D Displaced bimalleolar fracture of left lower leg, subsequent encounter for closed fracture with routine healing (principal)

== ENCOUNTER 2023-04-21 09:38 | Day surgery (SDC) | payer OTHER ==
[~2023-04-21 09:38] MED LIST changes: +ACETAMINOPHEN 500 MG TABLET PO ONE; -CEFAZOLIN SODIUM IN 0.9 % NACL 2 GM/100 ML BAG IV ONE; +CELECOXIB 100 MG CAPSULE PO ONE; +ceFAZolin 2 GM VIAL ONE
[2023-04-21] MEDS ORDERED: LACTATED RINGERS 1,000 ML IV ONE ×2 (10:07→14:07)
[2023-04-21] MEDS ORDERED: BUPIVACAINE 0.25% PF 30 ML VIAL ONE (10:12)
[2023-04-21 11:17] LABS: CALCIUM 9.4 mg/dL (8.5-10.3); CREATININE 0.5 mg/dL (0.6-1.3); POTASSIUM 3.5 mmol/L (3.5-4.5)
[2023-04-21] MEDS ORDERED: MIDAZOLAM 2 MG/2 ML VIAL ONE (11:39)
[2023-04-21] MEDS ORDERED: fentaNYL 100 MCG/2 ML VIAL ONE ×2 (11:39→12:57)
[2023-04-21] MEDS ORDERED: ROPIVACAINE 0.5% PF 20 ML VIAL ONE (11:40)
[2023-04-21] MEDS ORDERED: PROPOFOL 200 MG/20 ML VIAL IVP ONE (11:40)
[2023-04-21] MEDS ORDERED: ROCURONIUM 50 MG/5 ML VIAL ONE (11:41)
[2023-04-21] MEDS ORDERED: DEXAMETHASONE 4 MG/ML VIAL ONE (11:41)
[2023-04-21] MEDS ORDERED: ONDANSETRON 4 MG/2 ML VIAL ONE (11:41)
[2023-04-21] MEDS ORDERED: BUPIVACAINE 0.25% PF 30 ML VIAL SUBQ ONE ×2 (13:17)
[2023-04-21] MEDS ORDERED: ONDANSETRON 4 MG/2 ML VIAL IVP PRN (14:10)
[2023-04-21] MEDS ORDERED: ACETAMINOPHEN 500 MG TABLET PO PRN (14:10)
[2023-04-21] MEDS ORDERED: oxyCODONE 5 MG TABLET PO PRN (14:10)
--- NOTE | 2023-04-21 14:22 | OPERATIVE REPORT ---
Operative Report - General Procedure Date: 04/21/23 Planned Procedure: Open reduction internal fixation left ankle Pre-Op Diagnosis: Unstable, displaced trimalleolar fracture left ankle Procedure Performed: Open reduction internal fixation lateral malleolus with Arthrex fibula lock intramedullary trip and locking screws, medial malleolus with 4.0 cancellous screw, Arthrex left ankle Post Op Diagnosis: Same as preoperative diagnosis - Procedure Note Primary Surgeon: Pablo Ralph MD Secondary Surgeon: Dang CUMMINGS Anesthesia Provider: Kati Joseph CRNA Anesthesia Technique: Regional block Estimated Blood Loss (mL): 5 Indications: This is a 72-year-old ambulatory woman with a history of fall from standing height, twisting injury with isolated pain to left ankle. She was seen in the emergency room following injury and referred to our office. She had received a splint, instructed in nonweightbearing elevation. She was seen in our office for her left ankle fracture. Her x-rays and exam was consistent with a trimalleolar fracture left ankle with unstable ankle mortise. Her skin was intact. Her neurovascular status was intact. An informed consent was obtained for open reduction internal fixation of the left ankle as an outpatient procedure Findings: The patient had osteopenic bone. The ankle mortise seem to be stabilized and aligned with internal fixation. The fracture of the fibula was just above the ankle mortise. The fracture of the medial malleolus was primarily at the joint line and slightly above. There was a 5 mm loss of articular cartilage to the medial dome of the talus, more of an abrasion than a loose body Complications: None - Other Other Information/Narrative: After satisfactory anesthesia was obtained, patient was brought to the operating room and placed in the supine position with a foam bolster beneath the left leg. A gel bag was placed beneath the left buttock to help with internal rotation of the left leg. A padded pneumatic tourniquet was applied to the left thigh but was not utilized during surgery. A timeout procedure was performed and all were in agreement. The fibula was approached first. The bony landmarks of the fibula were outlined with a sterile marking pen. A 1 cm incision was made inferior to the tip of the lateral malleolus. A drill guide sleeve was utilized and a intramedullary K wire was inserted using biplanar C arm imaging. The K wire was inserted in the midline of the canal of the left fibula. Both small and larger drills were utilized to open the fibular canal. The 3 mm x 130 mm Arthrex intramedullary trip and guidewire impacted in the seated using the C-arm image intensifier. In the proximal talons were deployed to engage the proximal fibula. Distal locking screws were inserted, 2.7 mm from medial to lateral. 2 distal locking screws were inserted. The syndesmosis appeared stable and the guide was removed. The C-arm image x-rays showed a intact ankle mortise. An incision was made over the medial ankle, short longitudinal incision with exposure of the ankle joint medially and fracture which was stabilized with a K wire. A cannulated guidepin was inserted for deployment of a 55 mm 4.0 mm cancellous lag screw which gave satisfactory fixation to the fracture and ankle mortise. The C-arm image intensifier showed good alignment on both AP and lateral mortise to the ankle joint. The wounds were thoroughly irrigated. The incision over the medial ankle was closed with 2-0 subcutaneous suture, strata fix, same for the lateral with stainless steel staple closure to the skin incisions. Xeroform, dry sterile dressing and a well-padded short leg posterior fiberglass splint was applied to the left leg. She tolerated procedure well was received 2 g of Ancef intravenously. A physician office administrative assistant was felt to be medically necessary to help with prepping and draping, retraction and protection of vital structures, facilitation of internal fixation, wound closure and splint application.
[2023-04-21] MEDS ORDERED: HYDROmorphone 1 MG/ML CARPUJECT ONE (14:25)
--- NOTE | 2023-04-21 14:30 | OPERATIVE REPORT ---
Operative Report - General Procedure Date: 04/21/23 Planned Procedure: Open reduction internal fixation left ankle
[2023-04-21 15:36] VITALS: BP 150/102; O2SAT 94
--- NOTE | 2023-04-21 16:04 | ANESTHESIA ---
Pre-Anesthesia VS, & Labs - Diagnosis L ankle Fx - Procedure ORIF L ankle Vital Signs: Temp Pulse Resp BP Pulse Ox O2 Flow Rate 36.2 C L 83 16 150/102 H 94 0 04/21/23 15:30 04/21/23 15:30 04/21/23 15:30 04/21/23 15:30 04/21/23 15:30 04/21/23 10:14 Height: 4 ft 11 in Weight (kg): 77.6 kg Body Mass Index: 34.5 BMI Classification: Obese - NPO >8 hours - Is Patient ?: No - Lab Results Current Lab Results: Laboratory Tests 04/21/23 10:56: Sodium 140, Potassium 3.5, Chloride 106, Carbon Dioxide 25, Anion Gap 9.0, BUN 15, Creatinine 0.5 L, Estimated GFR (MDRD) 122, Glucose 99, Calcium 9.4 04/21/23 10:56: Acetaminophen 17.2 Fish Bones: 04/21/23 10:56 Home Medications and Allergies Home Medications: Ambulatory Orders Naproxen Sodium [Aleve] 440 mg PO BID 04/20/23 Active Medications Acetaminophen (Acetaminophen 500 Mg Tablet) 1,000 mg PO Q6HR PRN PRN Reason: Mild-Moderate Pain (Level 1-7) Ondansetron HCl (Ondansetron 4 Mg/2 Ml Vial) 4 mg IVP Q6HR PRN PRN Reason: Nausea / Vomiting Oxycodone HCl (Oxycodone 5 Mg Tablet) 5 mg PO Q6HR PRN PRN Reason: Breakthrough Pain(see comment) Gabapentin 900 mg PO BID 03/30/19 Acetaminophen [Tylenol] 2 tab PO Q8HR 04/16/23 Calcium Carbonate [Calcium] 2 tab PO DAILY 04/16/23 Cholecalciferol [Vitamin D3] 5,000 unit PO DAILY 04/16/23 Levothyroxine [Synthroid] 75 mcg PO DAILY 04/16/23 Rosuvastatin Calcium 20 mg PO HS 04/16/23 Naproxen Sodium [Aleve] 440 mg PO BID 04/20/23 Allergies/Adverse Reactions: Allergies Allergy/AdvReac Type Severity Reaction Status Date / Time hydrocodone [From Vicodin] Allergy Emesis Verified 04/21/23 07:04 oxycodone Allergy Emesis Verified 04/21/23 07:04 tetanus toxoid, adsorbed Allergy Dizziness Verified 04/21/23 07:04 Anes History & Medical History - Anesthetic History Anesthesia Complications: reports: No previous complications Family history of Anesthesia Complications: Denies Family history of Malignant Hyperthermia: Denies - Medical History Cardiovascular: reports: High cholesterol Pulmonary: reports: None Gastrointestinal: reports: None, Colon polyps Urinary: reports: None Neuro: reports: Peripheral neuropathy Musculoskeletal: reports: None, Chronic back pain, Other Endocrine/Autoimmune: reports: None, HyPOthyroidism Blood Disorders: reports: None Skin: reports: None Smoking Status: Current every day smoker - Surgical History General: reports: Colonoscopy Orthopedic: reports: Spine surgery Exam General: Alert, Oriented x3, Cooperative Dental: WNL Mouth Openin Fingerbreadth Neck Mobility: Normal Mallampati classification: II Thyromental Distance: 4-6 cm Respiratory: Lungs clear Cardiovascular: Regular rate Plan Anesthesia Type: General, Popliteal Block, Adductor Block Consent for Procedure(s) Verified and Reviewed: Yes Code Status: Attempt Resuscitation ASA classification: 3-Severe systemic disease Is this case an emergency?: No
--- NOTE | 2023-04-21 16:05 | ANESTHESIA POST OP EVALUATION ---
Anesthesia Post Eval - Post Anesthesia Eval Vitals: Last Vital Signs Temp 36.2 C L 04/21/23 15:30 Pulse 83 04/21/23 15:30 Resp 16 04/21/23 15:30 BP 150/102 H 04/21/23 15:30 Pulse Ox 94 04/21/23 15:30 O2 Flow Rate 0 04/21/23 10:14 CV Function Including HR & BP: Stable Pain Control: Satisfactory Nausea & Vomiting: Negative Mental Status: Baseline Respiratory Status: Airway Patent Hydration Status: Satisfactory Anesthesia Complications: None
--- NOTE | 2023-04-23 16:27 | XRAY Report ---
PROCEDURE: OR C-Arm Procedure INDICATIONS: ORIF LEFT ANKLE FLUORO TIME: 0.002 TECHNIQUE: Intraoperative fluoroscopic images. COMPARISON: X-ray ankle 04/19/2023 FINDINGS: Intraoperative images demonstrating bimalleolar fixation are present. Hardware is intact. There is go od anatomic alignment of previously identified distal fibular and medial malleolar fractures. There i s good anatomic alignment at the tibiotalar joint. IMPRESSION: Intraoperative fixation of the distal fibula and medial malleolus. Reviewed by: Rosa Miranda MD on 04/23/2023 4:26 PM PST Approved by: Rosa Miranda MD on 04/23/2023 4:26 PM [facility] Station ID: [id number]
== END 2023-04-21 09:39 | disposition home or self-care (01) ==
LOC: SDS 09:38
PROVIDERS: ATTEND Orthopaedic Surgery
DX: S82.852A Displaced trimalleolar fracture of left lower leg, initial encounter for closed fracture (principal); E66.9 Obesity, unspecified; Z68.34 Body mass index [BMI] 34.0-34.9, adult; F17.200 Nicotine dependence, unspecified, uncomplicated
CPT/HCPCS: 27822; 36415; 80048; 80307; A9270; C1713; J1170; J2795; J7120

== ENCOUNTER 2023-06-10 08:00 | Outpatient (CLI) | payer MEDICARE, OTHER ==
--- NOTE | 2023-06-10 16:49 | XRAY Report ---
PROCEDURE: Ankle 3 View LT INDICATIONS: LEFT ANKLE ORIF TECHNIQUE: 3 views of the ankle were acquired. COMPARISON: 04/19/2023 FINDINGS: Bones: Status post fixation of bimalleolar fracture. No evidence of hardware complication. Alignment is near-anatomic. Ankle mortise is intact. New fracture identified. Soft tissues: No tibiotalar joint effusion. Achilles tendon appears normal. IMPRESSION: Ongoing healing of bimalleolar fracture status post internal fixation without evidence of hardware co mplication. Reviewed by: Iesha Chandler MD on 06/10/2023 4:48 PM PST Approved by: Iesha Chandler MD on 06/10/2023 4:48 PM PST Station ID: [id number]
== END 2023-06-10 23:59 | disposition home or self-care (01) ==
LOC: DI.WOS 08:00
PROVIDERS: ATTEND Orthopaedic Surgery
DX: S82.842D Displaced bimalleolar fracture of left lower leg, subsequent encounter for closed fracture with routine healing (principal)

== ENCOUNTER 2023-10-15 09:18 | Outpatient (CLI) | payer MEDICARE ==
--- NOTE | 2023-10-15 12:06 | XRAY Report ---
PROCEDURE: Ankle 3+V LT INDICATIONS: DISPLACED TRIMALLEOLAR FRACTURE OF LEFT LOWER LEG TECHNIQUE: 3 views of the ankle were acquired. COMPARISON: Left ankle radiograph on June 10, 2023 FINDINGS: Bones: No fractures or dislocations. Surgical plate and screw fixation of the distal fibula and sin gle screw fixation of the medial malleolus is intact with no perihardware lucency to suggest hardware loosening. Interval callus formation of bimalleolar fracture. Stable alignment. Mild degenerative ch anges of the midfoot. No suspicious bony lesions. Soft tissues: No tibiotalar joint effusion. Achilles tendon appears normal. Scattered benign soft tissue calcifications. IMPRESSION: ORIF hardware of bimalleolar fracture is intact without complication. Interval osseous healing. Stabl e alignment. Reviewed by: Irene Morales MD on 10/15/2023 12:04 PM PDT Approved by: Irene Morales MD on 10/15/2023 12:04 PM PDT Station ID: [id number]
== END 2023-10-15 09:19 | disposition home or self-care (01) ==
LOC: DI.S 09:18
PROVIDERS: ATTEND Orthopaedic Surgery
DX: S82.852D Displaced trimalleolar fracture of left lower leg, subsequent encounter for closed fracture with routine healing (principal)

== ENCOUNTER 2024-01-06 08:44 | Outpatient (CLI) | payer MEDICARE ==
--- NOTE | 2024-01-07 08:33 | Mammography Report ---
BILATERAL DIGITAL SCREENING MAMMOGRAM 3D/2D WITH AUGMENTATION: 01/06/2024 CLINICAL: Routine screening. Comparison is made to exams dated: 12/04/2021 mammogram, 06/25/2020 mammogram, and 11/05/2016 mammogram - [facility]. There are scattered areas of fibroglandular density (category b / 25%-50% glandular tissue). Bilateral breast implants are stable. No significant masses, calcifications, or other findings are seen in either breast. There has been no significant interval change. IMPRESSION: BENIGN There is no mammographic evidence of malignancy. A 1 year screening mammogram is recommended. Based on the Tyrer Cuzick model (a risk assessment model) the patient's lifetime risk is 7.5% and her 10 year risk is 5.6%. According to the ACR, ACS, and NCCN guidelines, an annual breast MRI exam jaime g with mammogram is recommended if the patient's lifetime risk is 20% or greater. This exam was interpreted at Station ID: [id number]. NOTE: For mammograms, a report in lay terms will be sent to the patient. Approximately 15% of breast malignancies will not be visualized mammographically. In the management of a palpable breast mass, a negative mammogram must not discourage biopsy of a clinically suspicious lesion. Electronically Signed By: Iesha Chandler M.D., Ph.D. eb/penrad:01/07/2024 07:42:25 ACR BI-RADS Category 2: Benign PARENCHYMAL PATTERN: (A) - The breast(s) demonstrate(s) scattered fibroglandular densities. BI-RADS CATEGORY: (2) - 2 RECOMMENDATION: (ANNUAL) - Recommend routine annual screening mammography. [id number] 1 year screening LATERALITY: (B)
== END 2024-01-06 08:45 | disposition home or self-care (01) ==
LOC: DI.S 08:44
PROVIDERS: ATTEND Nurse Practitioner Family
DX: Z12.31 Encounter for screening mammogram for malignant neoplasm of breast (principal)